=== PATIENT | female | born 1955 | race Asian ===

== ENCOUNTER 2024-10-20 09:41 | Emergency (ER) | payer OTHER ==
[~2024-10-20] VITALS: Ht 162.6 cm; Wt 60.0 kg
[2024-10-20 09:43] VITALS: O2SAT 100
[2024-10-20] MEDS: SODIUM CHLORIDE 0.9% 1,000 ML IV ONE (10:16)
[2024-10-20] MEDS: FAMOTIDINE 20MG/2ML VIAL IV STA (10:34)
[2024-10-20] MEDS: ONDANSETRON HCL 4MG/2ML INJ IV STA (10:34)
[2024-10-20 10:35] LABS: CHLORIDE 105 mEq/L (98-107); POTASSIUM 3.7 mEq/L (3.5-5.1); SODIUM 140 mEq/L (136-145)
[2024-10-20 10:36] LABS: CALCIUM 10.1 mg/dL (8.7-10.4); CARBON DIOXIDE 29 mEq/L (21-32)
[2024-10-20 10:40] LABS: HEMATOCRIT. 39.2 % (36.0-48.0); MEAN CORPUSCULAR HEMOGLOBIN 30.1 pg (28.0-32.0); MEAN CORPUSCULAR HGB CONC 33.1 g/dL (31.0-37.0); MEAN CORPUSCULAR VOLUME 91.2 fL (81.0-99.0); MEAN PLATELET VOLUME 8.4 fl (7.4-10.4); PLATELET 255 x1000/uL (130-400); RED CELL DISTRIBUTION WIDTH 14.5 % (11.6-14.6); WHITE BLOOD COUNT 9.9 x1000/uL (4.5-11.0)
[2024-10-20 10:41] LABS: CREATININE 0.7 mg/dL (0.6-1.0); GLUCOSE 115 mg/dL (70-105); UREA NITROGEN BLOOD 11 mg/dL (9-23)
[2024-10-20 10:42] LABS: ALANINE AMINOTRANSFERASE 11 IU/L (10-49)
[2024-10-20 10:43] LABS: ASPARTATE AMINOTRANSFERASE 20 IU/L (<34); BILIRUBIN DIRECT 0.2 mg/dL (<=3.0); BILIRUBIN TOTAL 0.7 mg/dL (0.1-1.0); PROTEIN TOTAL 7.7 g/dL (6.0-8.3)
[2024-10-20 10:53] LABS: INR 0.9; PROTHROMBIN TIME 10.3 sec (9.6-11.0)
[2024-10-20 11:07] LABS: DIFFERENTIAL COMMENT 1
[2024-10-20 11:21] LABS: TROPONIN I HIGH SENSITIVITY < 4 ng/L (3.0-34)
[2024-10-20 12:33] LABS: PLATELET ESTIMATE NORMAL
[2024-10-20 13:19] VITALS: BP 157/78; PULSE 73; RESP 16; TEMP 37.05852; O2SAT 100
[2024-10-20 13:57] LABS: CLARITY URINE CLEAR (CLEAR); COLOR URINE YELLOW (YELLOW); GLUCOSE URINE NEGATIVE (NEGATIVE); KETONES URINE 1+ (NEGATIVE); LEUKOCYTE ESTERASE URINE NEGATIVE (NEGATIVE); NITRITE URINE NEGATIVE (NEGATIVE); OCCULT BLOOD URINE NEGATIVE (NEGATIVE); PROTEIN URINE NEGATIVE (NEGATIVE); SPECIFIC GRAVITY URINE 1.007 (1.005-1.030); UROBILINOGEN URINE 0.2 E.U./dL (0.2-1.0)
== END 2024-10-20 14:18 | disposition left against medical advice (07) ==
LOC: ER 09:47 → EDBEDREQTM 11:49 → EDBEDREQ 11:49 → ER 14:18
DX: K52.9 Noninfective gastroenteritis and colitis, unspecified (principal); E03.9 Hypothyroidism, unspecified
CPT/HCPCS: 99284; 96374; 96361; 96375; 80076; 80048; 81003; 83690; 85025; 85610; 84484; 36415; J3490; J2405; J7030